=== PATIENT | female | born 1995 ===

== ENCOUNTER 2017-07-26 07:16 | Inpatient (IN) ==
[2017-07-26 08:04] LABS: Apearance,Urine Slightly Hazy (Clear); Bacteria,Urine Moderate /HPF (Few); Bilirubin,Urine Negative (Negative); Blood, Urine Negative (Negative); Glucose,Urine (UA) Negative (Negative); Ketones,Urine 80 mg/dL (Negative); Mucus,Urine Occasional /LPF (Occasional); Nitrite,Urine Negative (Negative); Protein,Urine Negative; RBC,Urine 2 /HPF (0-4); Squamous Epithelial Cell,Urine Occasional /HPF (0-10); Urine Color Yellow (Yellow); Urine Specific Gravity 1.018 (1.001-1.035); Urine Urobilinogen < 2.0 EU/DL (0.2-1.0); WBC,Urine 14 /HPF (0-6)
[2017-07-26] MEDS ORDERED: ONDANSETRON 4 MG/2 ML VIAL IV PRN (08:42)
[2017-07-26] MEDS: LACTATED RINGERS 1,000 ML IV SCH ×2 (08:48→14:20)
[2017-07-26 08:57] LABS: Basophils % 0.3 % (0.0-0.8); Eosinophils # 0.1 10*3/uL (0.0-0.87); Hematocrit 34.8 VOL% (35.7-47.0); Hemoglobin 11.8 GM/DL (12.0-16.0); Immature Granulocytes % 0.4 %; Immature Granulocytes Absolute 0.03 #; Lymphocytes # 1.9 10*3/uL (1.4-4.0); Lymphocytes % 23.6 % (21.3-54.2); Mean Corpuscular HGB Conc 33.9 GM/DL (32-36); Mean Corpuscular Hemoglobin 28 PG (27-34); Mean Corpuscular Volume 83.7 FL (87-102); Mean Platelet Volume 9.2 FL (9.6-12.0); Monocytes # 0.6 10*3/uL (0.11-0.8); Monocytes % 7.3 % (1.7-12.7); Neutrophils # 5.3 10*3/uL (1.4-7.4); Neutrophils % 67.4 % (38.7-73.9); Platelet Count 250 T/CUMM (130-400); Red Blood Count 4.16 MC/CUMM (3.8-5.5); White Blood Count 7.9 T/CUMM (4-12)
[2017-07-26] MEDS ORDERED: OXYTOCIN/LR 20 UNIT/1,000 ML BAG IV SCH (09:00)
[2017-07-26 09:34] LABS: Albumin 2.5 G/DL (3.4-5.0); Bilirubin,Total 0.5 MG/DL (0.2-1.0); Calcium 8.4 MG/DL (8.5-10.1); Osmolality,Calculated 276.7 MOS/KG (273-304); Total Protein 6.9 G/DL (6.4-8.3)
--- NOTE | 2017-07-26 09:46 | OB/GYN History & Physical ---
History of Present Illness Chief complaint: Painful uterine contactions. History of present illness: Ms. Grijalva is a 22 year old female who is a 2 para 1 living 1. CAN 2016 estimated gestational age of 38 weeks and 2 days. The patient presents to the labor department in active labor. The risk and benefits has been thoroughly discussed with this patient significant other, plan of care has been discussed with Dr. Ayers and all parties are in agreement plan. Patient received care through the [facility] in the [facility]. She received routine care. Her course was complicated by new diagnosis of gestational diabetes. The patient's blood sugar was managed with diet. She has had 1 previous vaginal delivery of a liveborn at 36 weeks. That infant weighed 7 pounds and 12 ounces and she reported gestational diabetes with that as well. labs: She is O+, RPR is nonreactive , rubella is immune, Pap smear is within normal limits, hepatitis B negative, HIV negative, GBS culture unknown. Review of systems is negative with exception of above. Home Medications Medication Instructions Recorded Confirmed Type Folic Acid Tab 1 mg PO DAILY 07/14/17 07/26/17 History Multivitamin () [ 1 tablet PO DAILY 07/14/17 07/26/17 History Vitamin] Allergies Allergy/AdvReac Type Severity Reaction Status Date / Time No Known Allergies Allergy Verified 07/14/17 16:13 12 point system: reviewed and no additional remarkable complaints except as stated Medical,Surgical,& Family Hx - Medical History Medical History: noncontributory Endocrine: History of: Diabetes Mellitus (NIDDM) (gestional diet controll) - Surgical History Surgical History: noncontributory - Family History Family History: Reports;: Family Diabetes (mother mgm), Family Hypertension (mgm ) Denies;: Family Anesthesia Reaction, Family Cancer, Family Heart Disease, Family Hematology, Family Psychiatric Problems, Family Stroke, Additional Family History - Social History Smoking Status: Never smoker Frequency of Alcohol Use: None Type of Drug Use: None Marital Status: Single Lives With:: Significant Other Functional capacity: independent ambulation Exam [employer] - Constitutional Vitals: Vital Signs Temp Resp BP Pulse Ox 07/26/17 08:00 97.7 F 20 114/72 100 General appearance: mild distress - Antepartum / Post Antepartum Exam Cervix - Dilatation: 5 cm Effacement: 70% Station: -2 Rupture: intact Presentation: vtx Heart Rate: 140s Breast: bilateral: normal Abdomen obstetrics: Present: bowel sounds normal Vagina: Present: normal moisture, discharge (Bloody show) Uterus exam: Present: enlarged Anus/Rectum: Present: normal perianal skin - Respiratory Respiratory exam: Present: clear to auscultation bilaterally - Cardiovascular Cardiovascular exam: Present: regular rate and rhythm - GI/Abdominal GI/Abdominal exam: Present: normal bowel sounds, soft - Extremities Exam Extremities exam: Present: normal inspection - Neurological Exam Neurological exam: Present: alert, oriented X3 - Psychiatric Psychiatric exam: Present: normal affect, normal mood - Skin Skin exam: Present: normal color, warm Assessment and Plan (1) Active labor Status: Acute Assessment and plan: Admit IV fluids IV Pitocin per protocol Artificial rupture membranes Internal monitors indicated Epidural anesthesia if desired IV antibiotics prophylactically for unknown GBS Anticipate Current Visit: Yes Results - Labs CBC & BMP: 07/26/17 08:51 07/26/17 08:51
[2017-07-26] MEDS ORDERED: AMPICILLIN INJ 2,000 MG in SODIUM CHLORIDE 0.9% 100 ML IV ONE (09:51)
[2017-07-26] MEDS ORDERED: MEPERIDINE 50 MG/1 ML VIAL IV PRN (12:46)
[2017-07-26] MEDS ORDERED: LACTATED RINGERS 1,000 ML IV ONE (13:23)
[2017-07-26] MEDS ORDERED: FAMOTIDINE 20 MG/2 ML VIAL IV ONE (13:23)
[2017-07-26] MEDS ORDERED: CITRIC ACID/SODIUM CITRATE 30 ML UDCUP PO ONE (13:23)
[2017-07-26] MEDS ORDERED: diphenhydrAMINE 50 MG/1 ML VIAL IV PRN ×2 (13:24)
[2017-07-26] MEDS ORDERED: PROMETHAZINE 25 MG/1 ML VIAL IM ONE (13:24)
[2017-07-26] MEDS ORDERED: fentaNYL 2 MCG/ROPIV 0.2% EPID 150 ML EPIDURAL SCH (13:24)
[2017-07-26] MEDS ORDERED: ePHEDrine 50 MG/ML AMP IV PRN (13:24)
[2017-07-26] MEDS ORDERED: hydrOXYzine HCL 25 MG/1 ML VIAL IM PRN (13:24)
[2017-07-26] MEDS ORDERED: AMPICILLIN INJ 1,000 MG in SODIUM CHLORIDE 0.9% 100 ML IV SCH (14:00)
[2017-07-26 16:22] LABS: Cord Arterial Blood HCO3 16.4 MMOL/L
[2017-07-26 16:24] LABS: Cord Venous Blood HCO3 19.9 MMOL/L; Cord Venous Blood PCO2 41.1 MMHG; Cord Venous Blood PO2 40.8
[2017-07-26] MEDS ORDERED: ACETAMINOPHEN/CODEINE 300-30 MG TABLET PO PRN (16:27)
--- NOTE | 2017-07-26 16:36 | Event Note ---
HPI: Ms. Grijalva presented to the labor department in active labor. The risk and benefits were thoroughly discussed with this patient and significant other, plan of care was discussed with Dr. Ayers and all parties were in agreement plan. Stage I: The patient was admitted she received IV fluids and IV Pitocin per protocol. Artificial rupture membranes was performed with derrick colored fluid noted. The patient progressed in labor until she was approximately 7 cm and she decided that she wanted an epidural. Epidural anesthesia was obtained. The patient continued to progress with no complications noted. She maintain a category 1 tracing. Stage II: The patient was complete and the vertex was presented at 0 station. The patient was instructed to push. She pushed for approximately 30 minutes after which time the 's head was delivered. The was noted to have a large head, the mouth and nose were suctioned on the perineum. The delivery staff was signaled to prepare for a possible shoulder dystocia. An effort was made to deliver the remainder of the and tight shoulders were noted. Therefore, the patient was placed in Essence position to facilitate the delivery. She pushed approximately 1 more minute after the head was delivered; the remainder of the was delivered at 1554 without significant effort. A viable female was noted with terminal meconium at the time of delivery. Apgars were 8 at 1 minute and 9 at 5 minutes. weight was 11 pounds and 3 ounces. A cord pH was obtained and sent to the lab. Because of the size of the she was taken directly to the warmer to be evaluated by the nursery nurse. Stage III: A spontaneous delivery of a Daley placenta with a three-vessel cord noted. The placenta was further examined appeared to be grossly intact. The vagina cervix inspected with no tears or lacerations noted. Estimated blood loss is approximately 150 cc. At the time of dictation mother and baby are both in stable condition.
[2017-07-26] MEDS ORDERED: MEASLES/MUMPS/RUBELLA VACCINE 0.5 ML VIAL SUBCUT ONE (17:47)
[2017-07-26] MEDS ORDERED: oxyCODONE/ACETAMINOPHEN 5-325 MG TABLET PO PRN ×2 (17:47)
[2017-07-26] MEDS ORDERED: RHO(D) IMMUNE GLOBULIN 300 MCG SYRINGE IM ONE (17:47)
[2017-07-26] MEDS ORDERED: HYDROCORTISONE 2.5% RECTAL CREAM 30 GM TUBE TOP PRN (17:47)
[2017-07-26] MEDS ORDERED: WITCH HAZEL PADS 100/JAR TOP PRN (17:47)
[2017-07-26] MEDS ORDERED: DIPH/TET/ACEL PERT BOOSTER VACCINE 0.5 ML VIAL IM ONE (17:47)
[2017-07-26] MEDS ORDERED: BISACODYL 10 MG SUPP RECTAL PRN (17:47)
[2017-07-26] MEDS ORDERED: ACETAMINOPHEN 325 MG TABLET PO PRN (17:47)
[2017-07-26] MEDS ORDERED: LANOLIN 50% CREAM 0.3 OZ TUBE TOP PRN (17:47)
[2017-07-26] MEDS ORDERED: BENZOCAINE 20%/MENTHOL 0.5% SPRAY 56 GM CAN TOP PRN (17:47)
--- NOTE | 2017-07-26 19:26 | Anesthesia Post-Op ---
Anesthesia Post OP - Post Ansesthetic Evaluation Patient seen in post op: Yes Resp: within normal limits CV: within normal limits Mental: within normal limits Temp: within normal limits [id number]: within normal limits Nausea and Vomiting: within normal limits Pain: within normal limits
[2017-07-26] MEDS: DOCUSATE SODIUM 100 MG CAPSULE PO SCH (21:12)
[2017-07-26] MEDS: IBUPROFEN 800 MG TABLET PO PRN (22:00)
[2017-07-27 07:22] LABS: Basophils % 0.3 % (0.0-0.8); Eosinophils # 0.2 10*3/uL (0.0-0.87); Eosinophils % 1.4 % (0.00-10.9); Hematocrit 31.3 VOL% (35.7-47.0); Hemoglobin 10.7 GM/DL (12.0-16.0); Immature Granulocytes % 0.5 %; Immature Granulocytes Absolute 0.05 #; Lymphocytes # 2.5 10*3/uL (1.4-4.0); Lymphocytes % 22.9 % (21.3-54.2); Mean Corpuscular HGB Conc 34.2 GM/DL (32-36); Mean Corpuscular Hemoglobin 29 PG (27-34); Mean Corpuscular Volume 84.1 FL (87-102); Mean Platelet Volume 9.6 FL (9.6-12.0); Monocytes # 1.1 10*3/uL (0.11-0.8); Monocytes % 10.2 % (1.7-12.7); Neutrophils % 64.7 % (38.7-73.9); Platelet Count 221 T/CUMM (130-400); Red Blood Count 3.72 MC/CUMM (3.8-5.5); Red Cell Distribution Width 15.1 % (9.3-17.3); White Blood Count 10.8 T/CUMM (4-12)
[2017-07-27] MEDS: IBUPROFEN 800 MG TABLET PO PRN ×2 (08:41→16:18)
[2017-07-27] MEDS: DOCUSATE SODIUM 100 MG CAPSULE PO SCH ×2 (08:41→20:56)
--- NOTE | 2017-07-27 10:02 | OB/GYN Progress Note ---
Assessment and Plan (1) Active labor Status: Acute Assessment and plan: Admit IV fluids IV Pitocin per protocol Artificial rupture membranes Internal monitors indicated Epidural anesthesia if desired IV antibiotics prophylactically for unknown GBS Anticipate Current Visit: Yes (2) Vaginal delivery Status: Acute Assessment and plan: Initiate routine orders. Current Visit: Yes [facility] - PN: Subj Interval history: Stable with no complaints at this time. Exam [facility] - Constitutional Vitals: Vital Signs Temp Pulse Resp BP Pulse Ox 07/27/17 07:42 97.1 F L 64 18 97/64 97 07/27/17 07:00 18 07/27/17 05:50 18 07/27/17 05:00 18 07/27/17 03:55 97.5 F L 60 18 101/58 96 07/27/17 03:00 18 07/27/17 01:50 16 07/27/17 01:00 18 07/27/17 00:00 97.1 F L 62 16 104/66 96 07/26/17 20:40 97.4 F L 60 18 126/69 97 07/26/17 19:40 97.4 F L 65 20 116/63 96 07/26/17 18:40 57 L 19 117/73 100 07/26/17 18:10 57 L 20 119/87 100 07/26/17 17:40 97.2 F L 63 20 108/76 100 07/26/17 16:00 98 F 74 114/69 99 General appearance: no acute distress - Antepartum / Post Post Exam Breast: bilateral: normal Abdomen obstetrics: Present: bowel sounds normal Vagina: Present: normal moisture, discharge (Light lochia rubra) Uterus exam: Present: enlarged (Fundus firm and midline) Anus/Rectum: Present: normal perianal skin - Head Head exam: Present: normal inspection - ENT ENT exam: Present: normal exam - Neck Neck exam: Present: normal inspection - Respiratory Respiratory exam: Present: clear to auscultation bilaterally - Cardiovascular Cardiovascular exam: Present: regular rate and rhythm - GI/Abdominal GI/Abdominal exam: Present: normal bowel sounds, soft - Extremities Exam Extremities exam: Present: normal inspection - Neurological Exam Neurological exam: Present: alert, oriented X3 - Psychiatric Psychiatric exam: Present: normal affect, normal mood - Skin Skin exam: Present: normal color, warm Results - Labs CBC & BMP: 07/27/17 07:01 07/26/17 08:51
[2017-07-28 07:09] VITALS: BP 103/61
[2017-07-28] MEDS: DOCUSATE SODIUM 100 MG CAPSULE PO SCH (09:29)
--- NOTE | 2017-07-28 10:34 | Discharge Summary ---
Hospital Course - Hospital Course Hospital Course: Ms. Grijalva presented to the labor department in active labor. She subsequently delivered a viable female infant that weighed 11 pounds and 3 ounces. Due to the size of the it was taken to the NICU for stabilizations of blood sugars. The remains in the NICU in stable condition. The patient desires to be discharged to home. She has done well post . Her vital signs and lab values are stable. Her bleeding is minimal with no odor. Her perineum is intact with no edema. Contraception options has been discussed with this patient and she is undecided of a method at this time. She will be discharged home prescriptions for pain and a follow-up appointment in our office. Diagnosis - Discharge Diagnosis (1) Active labor Status: Acute (2) Vaginal delivery Status: Acute Specialty Discharge - Follow Up or Referrals Follow up with: Lacy Ayers MD [Physician] - (Return to clinic in 6 weeks.) Discharge Plan - Discharge Data Disposition: Disch To Home/Self Care Condition at Discharge: Stable Discharge Diet: advance to your usual diet, regular diet Activity: resume usual activities as tolerated Hygiene: may shower Weight Bearing at Discharge: weight bear as tolerated Driving: no restrictions Contact your physician if you experience:: fever over 101, pain uncontrolled by pain medications - Discharge Medications New Acetamin/Codeine 300-30 Tab [Tylenol/Codeine #3] 2 tablet PO Q4H PRN #30 tablet PRN Reason: Pain Mild (1-3) Ibuprofen Tab [Motrin Tab] 800 mg PO Q6H PRN #30 tablet PRN Reason: Pain Moderate (4-7) No Action Folic Acid Tab 1 mg PO DAILY Multivitamin () [ Vitamin] 1 tablet PO DAILY - Follow Up or Referral Follow Up: Lacy Ayers MD [Physician] - - Forms/Instructions Instructions: Perineal Care (DC), Vaginal Delivery (DC), Bleeding (DC) Exam - Constitutional Vitals: Period Temp Pulse Resp BP Sys/Abdi Pulse Ox Last 24 Hr 97 F-98.7 F 18-102 18-20 103-147/61-90 97-99 General appearance: normal weight, no acute distress - Head Head exam: Present: normal inspection - Respiratory Respiratory exam: Present: clear to auscultation bilaterally - Cardiovascular Cardiovascular exam: Present: regular rate and rhythm - GI/Abdominal GI/Abdominal exam: Present: normal bowel sounds, soft - Extremities Exam Extremities exam: Present: normal inspection - Neurological Exam Neurological exam: Present: alert, oriented X3 - Psychiatric Psychiatric exam: Present: normal affect, normal mood - Skin Skin exam: Present: normal color, warm DS: Provider Date of admission: 07/26/17 08:43 Primary care physician: Jef Mayberry MD Attending physician on admission: Lacy Ayers MD Consults: 07/26/17 08:43 Consult to Anesthesiology [CONS] Routine Consulting Provider: Reason for Anesthesiology: Epidural Consult Comment: Epidural for pain managment 07/26/17 17:47 Consult to Salesperson Burial Needs [CONS] Routine Consult Salesperson Burial Needs: Breast Feeding Discharging clinician: Darcy Fleming CNM Expected date of discharge: 07/28/17
== END 2017-07-28 16:20 | disposition home or self-care (01) | DRG 560 ==
LOC: N.LDOUT 07:16 → N.LD 07:17 → N.OB 17:42
PROVIDERS: ADMIT Obstetrics & Gynecology; ATTEND Obstetrics & Gynecology

== ENCOUNTER 2017-10-10 17:47 | Inpatient (IN) ==
[2017-10-10 19:21] LABS: Basophils % 0.4 % (0.0-0.8); Eosinophils # 0.1 10*3/uL (0.0-0.87); Eosinophils % 1.6 % (0.00-10.9); Hematocrit 35.1 VOL% (35.7-47.0); Hemoglobin 12.5 GM/DL (12.0-16.0); Immature Granulocytes % 0.7 %; Immature Granulocytes Absolute 0.04 #; Lymphocytes # 0.7 10*3/uL (1.4-4.0); Lymphocytes % 12.5 % (21.3-54.2); Mean Corpuscular HGB Conc 35.6 GM/DL (32-36); Mean Corpuscular Hemoglobin 30 PG (27-34); Monocytes # 0.5 10*3/uL (0.11-0.8); Monocytes % 9.1 % (1.7-12.7); Neutrophils # 4.2 10*3/uL (1.4-7.4); Neutrophils % 75.7 % (38.7-73.9); Platelet Count 281 T/CUMM (130-400); Red Blood Count 4.18 MC/CUMM (3.8-5.5); Red Cell Distribution Width 13.6 % (9.3-17.3); White Blood Count 5.5 T/CUMM (4-12)
[2017-10-10 19:45] LABS: Albumin 3.4 G/DL (3.4-5.0); Bilirubin,Total 6.4 MG/DL (0.2-1.0); Osmolality,Calculated 274.4 MOS/KG (273-304); Potassium 3.4 MMOL/L (3.5-5.1); Total Protein 6.6 G/DL (6.4-8.3)
[2017-10-10] MEDS ORDERED: ACETAMINOPHEN 325 MG TABLET PO PRN (19:45)
[2017-10-10] MEDS ORDERED: ALUMINUM/MAGNES/SIMETH MAX STR 30 ML UDCUP PO PRN (19:45)
[2017-10-10] MEDS: DOCUSATE SODIUM 100 MG CAPSULE PO SCH (22:16)
[2017-10-10] MEDS: DEXTROSE 5% NACL 0.45% 1,000 ML IV SCH (22:19)
[2017-10-10] MEDS: cefOXitin 2,000 MG in SYRINGE 1 EACH IV SCH (22:47)
[2017-10-11] MEDS: cefOXitin 2,000 MG in SYRINGE 1 EACH IV SCH ×4 (05:20→21:39)
[2017-10-11 05:24] LABS: Basophils % 0.6 % (0.0-0.8); Eosinophils # 0.2 10*3/uL (0.0-0.87); Eosinophils % 3.5 % (0.00-10.9); Hematocrit 33.9 VOL% (35.7-47.0); Hemoglobin 11.8 GM/DL (12.0-16.0); Immature Granulocytes % 0.6 %; Immature Granulocytes Absolute 0.03 #; Lymphocytes # 1.4 10*3/uL (1.4-4.0); Lymphocytes % 28.4 % (21.3-54.2); Mean Corpuscular HGB Conc 34.8 GM/DL (32-36); Mean Corpuscular Hemoglobin 30 PG (27-34); Mean Corpuscular Volume 84.8 FL (87-102); Mean Platelet Volume 9.3 FL (9.6-12.0); Monocytes # 0.5 10*3/uL (0.11-0.8); Monocytes % 11.1 % (1.7-12.7); Neutrophils # 2.7 10*3/uL (1.4-7.4); Neutrophils % 55.8 % (38.7-73.9); Platelet Count 277 T/CUMM (130-400); Red Cell Distribution Width 13.7 % (9.3-17.3); White Blood Count 4.9 T/CUMM (4-12)
[2017-10-11] MEDS: DEXTROSE 5% NACL 0.45% 1,000 ML IV SCH ×2 (05:47→13:48)
[2017-10-11 05:59] LABS: Bilirubin,Total 4.4 MG/DL (0.2-1.0); Calcium 7.9 MG/DL (8.5-10.1); Magnesium 1.9 MG/DL (1.8-2.4); Osmolality,Calculated 275.5 MOS/KG (273-304); Potassium 3.2 MMOL/L (3.5-5.1); Total Protein 6.1 G/DL (6.4-8.3)
[2017-10-11] MEDS: PANTOPRAZOLE 40 MG TABLET PO SCH (08:32)
[2017-10-11] MEDS: DOCUSATE SODIUM 100 MG CAPSULE PO SCH ×2 (08:32→21:39)
[2017-10-11] MEDS: DEXT 5% NACL 0.45% KCL 40 MEQ 40 MEQ/1,000 ML BAG IV SCH (13:31)
[2017-10-12] MEDS: DEXT 5% NACL 0.45% KCL 40 MEQ 40 MEQ/1,000 ML BAG IV SCH ×2 (01:28→10:22)
[2017-10-12] MEDS: cefOXitin 2,000 MG in SYRINGE 1 EACH IV SCH ×3 (07:11→18:38)
[2017-10-12 07:42] LABS: Basophils % 0.7 % (0.0-0.8); Eosinophils # 0.4 10*3/uL (0.0-0.87); Eosinophils % 8.8 % (0.00-10.9); Hematocrit 35.9 VOL% (35.7-47.0); Hemoglobin 12.4 GM/DL (12.0-16.0); Immature Granulocytes % 0.4 %; Immature Granulocytes Absolute 0.02 #; Lymphocytes # 1.7 10*3/uL (1.4-4.0); Lymphocytes % 36.3 % (21.3-54.2); Mean Corpuscular HGB Conc 34.5 GM/DL (32-36); Mean Corpuscular Hemoglobin 30 PG (27-34); Mean Corpuscular Volume 85.5 FL (87-102); Monocytes # 0.5 10*3/uL (0.11-0.8); Monocytes % 10.5 % (1.7-12.7); Neutrophils % 43.3 % (38.7-73.9); Platelet Count 285 T/CUMM (130-400); Red Cell Distribution Width 13.9 % (9.3-17.3); White Blood Count 4.6 T/CUMM (4-12)
[2017-10-12 07:49] LABS: INR 1.1; PT Patient Result 11.1 SECS
[2017-10-12 08:13] LABS: Calcium 8.6 MG/DL (8.5-10.1); Osmolality,Calculated 277.3 MOS/KG (273-304); Potassium 3.9 MMOL/L (3.5-5.1); Total Protein 6.3 G/DL (6.4-8.3)
[2017-10-12] MEDS: PANTOPRAZOLE 40 MG TABLET PO SCH (10:21)
[2017-10-12] MEDS: DOCUSATE SODIUM 100 MG CAPSULE PO SCH ×2 (10:21→20:08)
[2017-10-12] MEDS ORDERED: KETAMINE 500 MG/10 ML VIAL ONE (10:24)
[2017-10-12] MEDS ORDERED: fentaNYL 100 MCG/2 ML VIAL ONE (10:24)
[2017-10-12] MEDS ORDERED: MIDAZOLAM 2 MG/2 ML VIAL ONE (10:25)
[2017-10-12] MEDS ORDERED: PROPOFOL 200 MG/20 ML VIAL IV ONE (12:12)
[2017-10-12] MEDS: ONDANSETRON 4 MG/2 ML VIAL IV PRN (14:20)
[2017-10-12] MEDS ORDERED: ONDANSETRON 4 MG/2 ML VIAL ONE (14:23)
[2017-10-12] MEDS: HYDROmorphone 2 MG/1 ML VIAL IV PRN ×2 (14:36→20:08)
[2017-10-12] MEDS: DEXTROSE 5% NACL 0.45% 1,000 ML IV SCH ×2 (14:41→22:47)
[2017-10-13] MEDS: cefOXitin 2,000 MG in SYRINGE 1 EACH IV SCH ×4 (01:14→18:33)
[2017-10-13 05:42] LABS: Basophils # 0.1 10*3/uL (0.0-0.2); Basophils % 0.9 % (0.0-0.8); Eosinophils # 0.4 10*3/uL (0.0-0.87); Eosinophils % 6.1 % (0.00-10.9); Hematocrit 34.9 VOL% (35.7-47.0); Hemoglobin 12.3 GM/DL (12.0-16.0); Immature Granulocytes % 0.3 %; Immature Granulocytes Absolute 0.02 #; Lymphocytes # 2.1 10*3/uL (1.4-4.0); Lymphocytes % 36.8 % (21.3-54.2); Mean Corpuscular HGB Conc 35.2 GM/DL (32-36); Mean Corpuscular Hemoglobin 30 PG (27-34); Mean Corpuscular Volume 85.5 FL (87-102); Mean Platelet Volume 9.2 FL (9.6-12.0); Monocytes # 0.7 10*3/uL (0.11-0.8); Neutrophils # 2.5 10*3/uL (1.4-7.4); Neutrophils % 43.9 % (38.7-73.9); Platelet Count 296 T/CUMM (130-400); Red Blood Count 4.08 MC/CUMM (3.8-5.5); Red Cell Distribution Width 13.7 % (9.3-17.3); White Blood Count 5.8 T/CUMM (4-12)
[2017-10-13] MEDS ORDERED: ceFAZolin 1,000 MG in SYRINGE 1 EACH IV ONE (06:00)
[2017-10-13 06:21] LABS: Albumin 2.9 G/DL (3.4-5.0); Bilirubin,Total 1.7 MG/DL (0.2-1.0); Calcium 8.1 MG/DL (8.5-10.1); Osmolality,Calculated 276.3 MOS/KG (273-304); Potassium 3.5 MMOL/L (3.5-5.1)
[2017-10-13] MEDS: DEXTROSE 5% NACL 0.45% 1,000 ML IV SCH ×2 (06:57→18:07)
[2017-10-13] MEDS ORDERED: FAMOTIDINE 20 MG TABLET PO ONE (08:12)
[2017-10-13] MEDS ORDERED: SCOPOLAMINE 1.5 MG PATCH TRANSDERM ONE (08:26)
[2017-10-13] MEDS ORDERED: LACTATED RINGERS 1,000 ML IV SCH (08:30)
[2017-10-13] MEDS: PANTOPRAZOLE 40 MG TABLET PO SCH (09:23)
[2017-10-13] MEDS: DOCUSATE SODIUM 100 MG CAPSULE PO SCH ×2 (09:23→21:38)
[2017-10-13] MEDS ORDERED: GLUCAGON 1 MG VIAL ONE (12:15)
[2017-10-13] MEDS ORDERED: TISSUE ADHESIVE 1 EACH APPLICATOR TOP ONE (12:41)
[2017-10-13] MEDS ORDERED: fentaNYL 100 MCG/2 ML VIAL ONE (13:12)
[2017-10-13] MEDS ORDERED: PROPOFOL 200 MG/20 ML VIAL IV ONE (13:12)
[2017-10-13] MEDS ORDERED: SEVOFLURANE 1 UNIT/15 MINUTE INH ONE (13:12)
[2017-10-13] MEDS ORDERED: GLYCOPYRROLATE 0.4 MG/2 ML VIAL ONE (13:13)
[2017-10-13] MEDS ORDERED: ePHEDrine 50 MG/ML AMP ONE (13:13)
[2017-10-13] MEDS: HYDROmorphone 2 MG/1 ML VIAL IV PRN ×5 (13:15→17:47)
[2017-10-13] MEDS: ONDANSETRON 4 MG/2 ML VIAL IV PRN ×2 (13:16→17:48)
[2017-10-13] MEDS ORDERED: ONDANSETRON 4 MG/2 ML VIAL IV PRN (13:30)
[2017-10-13] MEDS: KETOROLAC 15 MG/1 ML VIAL IV SCH ×2 (13:47→20:11)
[2017-10-13] MEDS: ceFAZolin 2,000 MG in PREMIX 1 EACH IV SCH (17:56)
[2017-10-13 18:10] LABS: Hematocrit 35.8 VOL% (35.7-47.0); Hemoglobin 12.4 GM/DL (12.0-16.0)
[2017-10-14] MEDS: KETOROLAC 15 MG/1 ML VIAL IV SCH ×3 (01:19→13:34)
[2017-10-14] MEDS: cefOXitin 2,000 MG in SYRINGE 1 EACH IV SCH ×3 (01:21→13:34)
[2017-10-14] MEDS: DEXTROSE 5% NACL 0.45% 1,000 ML IV SCH ×3 (02:35→13:33)
[2017-10-14] MEDS: ceFAZolin 2,000 MG in PREMIX 1 EACH IV SCH (02:35)
[2017-10-14 04:51] LABS: Basophils % 0.3 % (0.0-0.8); Eosinophils # 0.1 10*3/uL (0.0-0.87); Eosinophils % 1.3 % (0.00-10.9); Hematocrit 34.1 VOL% (35.7-47.0); Hemoglobin 11.9 GM/DL (12.0-16.0); Immature Granulocytes % 0.4 %; Immature Granulocytes Absolute 0.03 #; Lymphocytes # 1.8 10*3/uL (1.4-4.0); Lymphocytes % 23.9 % (21.3-54.2); Mean Corpuscular HGB Conc 34.9 GM/DL (32-36); Mean Corpuscular Hemoglobin 30 PG (27-34); Mean Corpuscular Volume 85.9 FL (87-102); Mean Platelet Volume 9.3 FL (9.6-12.0); Monocytes # 0.8 10*3/uL (0.11-0.8); Monocytes % 9.8 % (1.7-12.7); Neutrophils % 64.3 % (38.7-73.9); Platelet Count 285 T/CUMM (130-400); Red Blood Count 3.97 MC/CUMM (3.8-5.5); Red Cell Distribution Width 13.8 % (9.3-17.3); White Blood Count 7.7 T/CUMM (4-12)
[2017-10-14 05:27] LABS: Albumin 2.9 G/DL (3.4-5.0); Bilirubin,Total 1.3 MG/DL (0.2-1.0); Osmolality,Calculated 279.1 MOS/KG (273-304); Potassium 3.1 MMOL/L (3.5-5.1); Total Protein 6.2 G/DL (6.4-8.3)
[2017-10-14] MEDS ORDERED: ENOXAPARIN 40 MG/0.4 ML SYRINGE SUBCUT SCH (09:00)
[2017-10-14] MEDS: PANTOPRAZOLE 40 MG TABLET PO SCH (09:10)
[2017-10-14] MEDS: DOCUSATE SODIUM 100 MG CAPSULE PO SCH (09:10)
[2017-10-14 11:53] VITALS: BP 104/55
== END 2017-10-14 14:17 | disposition home or self-care (01) | DRG 263 ==
LOC: EDUNIT# → EDBD → N.ED 17:47 → N.EDINP 19:45 → N.5E 20:52
PROVIDERS: ADMIT Specialist; ATTEND Specialist
PROC: ERCPWSP (ICD-10-PCS; 2017-10-12 12:05)
PROC: LAPCHOL (2017-10-13 11:10)

== ENCOUNTER 2020-12-24 06:50 | Inpatient (IN) ==
[2020-12-24] MEDS ORDERED: LACTATED RINGERS 1,000 ML IV PRN (07:21)
[2020-12-24] MEDS ORDERED: BUTORPHANOL 2 MG/ML VIAL IV PRN (07:21)
[2020-12-24] MEDS ORDERED: MEPERIDINE 50 MG/1 ML VIAL IV PRN (07:21)
[2020-12-24] MEDS ORDERED: ONDANSETRON 4 MG/2 ML VIAL IV PRN ×2 (07:21→18:45)
[2020-12-24] MEDS ORDERED: OXYTOCIN/LR 20 UNIT/1,000 ML BAG IV SCH (07:30)
[2020-12-24] MEDS ORDERED: LACTATED RINGERS 1,000 ML IV SCH (07:30)
[2020-12-24 07:39] LABS: Basophils % 0.5 % (0.0-0.8); Eosinophils # 0.2 10*3/uL (0.0-0.87); Eosinophils % 1.7 % (0.00-10.9); Hematocrit 30.3 VOL% (35.7-47.0); Hemoglobin 9.5 GM/DL (12.0-16.0); Immature Granulocytes % 0.3 %; Immature Granulocytes Absolute 0.03 #; Lymphocytes # 3.2 10*3/uL (1.4-4.0); Lymphocytes % 36.1 % (21.3-54.2); Mean Corpuscular HGB Conc 31.4 GM/DL (32-36); Mean Corpuscular Volume 75.6 FL (87-102); Mean Platelet Volume 10.4 FL (9.6-12.0); Monocytes % 7.4 % (1.7-12.7); Platelet Count 319 T/CUMM (130-400); Red Blood Count 4.01 MC/CUMM (3.8-5.5); Red Cell Distribution Width 13.9 % (9.3-17.3); White Blood Count 8.8 T/CUMM (4-12)
[2020-12-24 08:59] LABS: Alanine Aminotransferase 12 U/L (13-56); Albumin 1.9 G/DL (3.4-5.0); Alkaline Phosphatase 140 U/L (45-117); Aspartate Amino Transferase 17 U/L (0-37); Bilirubin,Direct < 0.100 MG/DL (0.0-0.20); Bilirubin,Total < 0.39 MG/DL (0.2-1.0); Blood Urea Nitrogen 12 MG/DL (7-18); Calcium 7.9 MG/DL (8.5-10.1); Carbon Dioxide 21 MMOL/L (21-32); Estimated Glom Filtration Rate 98 ML/MIN; Glucose 141 MG/DL (74-106); Osmolality,Calculated 278.5 MOS/KG (273-304); Sodium 139 MMOL/L (136-145); Total Protein 6.3 G/DL (6.4-8.3); Uric Acid 6.5 MG/DL (2.6-6.0)
[2020-12-24 09:23] LABS: Bacteria,Urine Occasional /HPF (Few); Bilirubin,Urine Negative (Negative); Blood, Urine Negative (Negative); Glucose,Urine (UA) Negative (Negative); Hyaline Casts,Urine 18 /LPF (0-3); Ketones,Urine Negative (Negative); Mucus,Urine Few /LPF (Occasional); Nitrite,Urine Negative (Negative); Protein,Urine >=500 MG/DL; RBC,Urine 3 /HPF (0-4); Squamous Epithelial Cell,Urine Occasional /HPF (0-10); Urine Appearance CLEAR (Clear); Urine Color Amber (Yellow); Urine Specific Gravity 1.028 (1.001-1.035); Urine Urobilinogen < 2.0 EU/DL (0.2-1.0); WBC,Urine 5 /HPF (0-6)
[2020-12-24] MEDS ORDERED: AMPICILLIN INJ 2,000 MG in SODIUM CHLORIDE 0.9% 100 ML IV ONE (09:35)
[2020-12-24] MEDS ORDERED: AMPICILLIN 2,000 MG VIAL ONE (09:36)
[2020-12-24] MEDS ORDERED: SODIUM CHLORIDE 0.9% 0 ML IV ONE (09:37)
[2020-12-24 09:58] LABS: INR 0.9; PT Patient Result 8.9 SECS (9.8-11.9); Partial Thromboplastin Time 24.4 SECS (23.9-33.8)
[2020-12-24] MEDS ORDERED: ePHEDrine 50 MG/ML VIAL IV PRN (11:56)
[2020-12-24] MEDS ORDERED: FAMOTIDINE 20 MG/2 ML VIAL IV ONE ×2 (11:56→12:01)
[2020-12-24] MEDS ORDERED: CITRIC ACID/SODIUM CITRATE 30 ML UDCUP PO ONE (11:56)
[2020-12-24] MEDS ORDERED: NALOXONE 0.4 MG/ML VIAL IV PRN (11:57)
[2020-12-24] MEDS ORDERED: hydrOXYzine HCL 25 MG/1 ML VIAL IM PRN (11:57)
[2020-12-24] MEDS ORDERED: LACTATED RINGERS 250 ML IV PRN (11:57)
[2020-12-24] MEDS ORDERED: PROMETHAZINE 25 MG/1 ML VIAL IM ONE (11:57)
[2020-12-24] MEDS ORDERED: diphenhydrAMINE 50 MG/1 ML VIAL IV PRN ×2 (11:57)
[2020-12-24] MEDS ORDERED: fentaNYL 2 MCG/ROPIV 0.2% EPID 100 ML EPIDURAL SCH (12:00)
[2020-12-24] MEDS ORDERED: NIFEdipine 10 MG CAPSULE PO ONE ×2 (12:09→12:32)
[2020-12-24] MEDS ORDERED: AMPICILLIN INJ 1,000 MG in SODIUM CHLORIDE 0.9% 100 ML IV SCH (14:00)
[2020-12-24] MEDS ORDERED: CARBOPROST TROMETHAMINE 250 MCG/ML AMP IM ONE (17:52)
[2020-12-24] MEDS ORDERED: TRANEXAMIC ACID 1,000 MG/10 ML VIAL ONE (17:52)
[2020-12-24] MEDS ORDERED: METHYLERGONOVINE 0.2 MG/1 ML AMP ONE (17:52)
[2020-12-24] MEDS ORDERED: miSOPROStoL 200 MCG TABLET ONE (17:52)
[2020-12-24 18:31] LABS: Cord Venous Blood HCO3 18.5 MMOL/L; Cord Venous Blood PO2 27.2
[2020-12-24 18:32] LABS: Bacteria,Urine Occasional /HPF (Few); Bilirubin,Urine Negative (Negative); Blood, Urine Negative (Negative); Glucose,Urine (UA) Negative (Negative); Hyaline Casts,Urine 5 /LPF (0-3); Ketones,Urine Negative (Negative); Mucus,Urine Occasional /LPF (Occasional); Nitrite,Urine Negative (Negative); Protein,Urine >=500 MG/DL; RBC,Urine 2 /HPF (0-4); Squamous Epithelial Cell,Urine Occasional /HPF (0-10); Urine Appearance Slightly Hazy (Clear); Urine Color Yellow (Yellow); Urine Specific Gravity 1.017 (1.001-1.035); Urine Urobilinogen < 2.0 EU/DL (0.2-1.0); WBC,Urine 11 /HPF (0-6)
[2020-12-24] MEDS ORDERED: BISACODYL 10 MG SUPP RECTAL PRN (18:45)
[2020-12-24] MEDS ORDERED: RHO(D) IMMUNE GLOBULIN 300 MCG SYRINGE IM ONE (18:45)
[2020-12-24] MEDS ORDERED: HYDROCORTISONE 2.5% RECTAL CREAM 30 GM TUBE TOP PRN (18:45)
[2020-12-24] MEDS ORDERED: LANOLIN 50% CREAM 0.3 OZ TUBE TOP PRN (18:45)
[2020-12-24] MEDS ORDERED: MEASLES/MUMPS/RUBELLA VACCINE 0.5 ML VIAL SUBCUT ONE (18:45)
[2020-12-24] MEDS ORDERED: ACETAMINOPHEN 325 MG TABLET PO PRN (18:45)
[2020-12-24] MEDS ORDERED: GLUCAGON 1 MG VIAL IM PRN ×2 (18:45→19:02)
[2020-12-24] MEDS ORDERED: OXYTOCIN/LR 20 UNIT/1,000 ML BAG IV ONE (18:45)
[2020-12-24] MEDS ORDERED: BENZOCAINE 20%/MENTHOL 0.5% SPRAY 56 GM CAN TOP PRN (18:45)
[2020-12-24] MEDS ORDERED: DEXTROSE 50% 25 GM/50 ML VIAL IV PRN ×2 (18:45→19:02)
[2020-12-24] MEDS ORDERED: oxyCODONE/ACETAMINOPHEN 5-325 MG TABLET PO PRN ×2 (18:45)
[2020-12-24] MEDS ORDERED: DIPH/TET/ACEL PERT BOOSTER VACCINE 0.5 ML VIAL IM ONE (18:45)
[2020-12-24] MEDS ORDERED: WITCH HAZEL PADS 100/JAR TOP PRN (18:45)
[2020-12-24] MEDS: DOCUSATE SODIUM 100 MG CAPSULE PO SCH (21:00)
[2020-12-24] MEDS: IBUPROFEN 800 MG TABLET PO PRN (21:00)
[2020-12-25 06:32] LABS: Basophils % 0.3 % (0.0-0.8); Eosinophils # 0.1 10*3/uL (0.0-0.87); Eosinophils % 0.4 % (0.00-10.9); Hematocrit 22.2 VOL% (35.7-47.0); Hemoglobin 6.9 GM/DL (12.0-16.0); Immature Granulocytes % 0.5 %; Immature Granulocytes Absolute 0.08 #; Lymphocytes # 2.4 10*3/uL (1.4-4.0); Lymphocytes % 15.2 % (21.3-54.2); Mean Corpuscular HGB Conc 31.1 GM/DL (32-36); Mean Corpuscular Volume 75.3 FL (87-102); Mean Platelet Volume 10.4 FL (9.6-12.0); Monocytes % 5.6 % (1.7-12.7); Platelet Count 232 T/CUMM (130-400); Red Blood Count 2.95 MC/CUMM (3.8-5.5); Red Cell Distribution Width 14.2 % (9.3-17.3); White Blood Count 15.8 T/CUMM (4-12)
[2020-12-25] MEDS ORDERED: SODIUM CHLORIDE 0.9% 1,000 ML IV PRN (06:50)
[2020-12-25] MEDS: FERROUS SULFATE 325 MG TABLET PO SCH ×3 (09:06→20:05)
[2020-12-25] MEDS: DOCUSATE SODIUM 100 MG CAPSULE PO SCH ×2 (09:06→20:05)
[2020-12-25] MEDS: INSULIN REGULAR 100 UNIT/ML SUBCUT SCH ×2 (09:14→16:13)
[2020-12-25] MEDS: IBUPROFEN 800 MG TABLET PO PRN (12:19)
[2020-12-25 17:31] LABS: Hematocrit 28.5 VOL% (35.7-47.0); Hemoglobin 9.2 GM/DL (12.0-16.0)
[2020-12-26] MEDS ORDERED: INFLUENZA VIRUS VACCINE 0.5 ML SYRINGE IM ONE ×2 (09:00→12:00)
[2020-12-26 09:24] VITALS: BP 137/91
[2020-12-26] MEDS: INSULIN REGULAR 100 UNIT/ML SUBCUT SCH (09:38)
[2020-12-26] MEDS: DOCUSATE SODIUM 100 MG CAPSULE PO SCH (10:07)
[2020-12-26] MEDS: FERROUS SULFATE 325 MG TABLET PO SCH (10:07)
== END 2020-12-26 13:40 | disposition home or self-care (01) | DRG 560 ==
LOC: N.LD 06:50 → N.OB 21:10
PROVIDERS: ADMIT Obstetrics & Gynecology; ATTEND Obstetrics & Gynecology

== ENCOUNTER 2022-10-18 21:14 | Inpatient (IN) ==
[2022-10-18] MEDS ORDERED: LACTATED RINGERS 500 ML IV PRN (21:22)
[2022-10-18] MEDS ORDERED: TRANEXAMIC ACID 1,000 MG in SODIUM CHLORIDE 0.9% 100 ML IV PRN (21:22)
[2022-10-18] MEDS ORDERED: METHYLERGONOVINE 0.2 MG/1 ML AMP IM PRN (21:22)
[2022-10-18] MEDS ORDERED: BUTORPHANOL 2 MG/ML VIAL IV PRN (21:22)
[2022-10-18] MEDS ORDERED: ACETAMINOPHEN 325 MG TABLET PO PRN (21:22)
[2022-10-18] MEDS ORDERED: CARBOPROST TROMETHAMINE 250 MCG/ML AMP IM PRN (21:22)
[2022-10-18] MEDS ORDERED: OXYTOCIN/LR 20 UNIT/1,000 ML BAG IV ONE (21:22)
[2022-10-18] MEDS ORDERED: miSOPROStoL 200 MCG TABLET RECTAL PRN (21:22)
[2022-10-18] MEDS ORDERED: ONDANSETRON 4 MG/2 ML VIAL IV PRN (21:22)
[2022-10-18] MEDS ORDERED: OXYTOCIN/LR 20 UNIT/1,000 ML BAG IV SCH (21:30)
[2022-10-18] MEDS ORDERED: MEPERIDINE 25 MG/1 ML VIAL IV PRN (21:42)
[2022-10-18 21:49] LABS: Basophils % 0.4 % (0.0-0.8); Eosinophils # 0.1 10*3/uL (0.0-0.87); Eosinophils % 1.4 % (0.00-10.9); Hematocrit 34.1 VOL% (35.7-47.0); Hemoglobin 11.3 GM/DL (12.0-16.0); Immature Granulocytes % 0.4 %; Immature Granulocytes Absolute 0.03 #; Lymphocytes # 2.7 10*3/uL (1.4-4.0); Mean Corpuscular HGB Conc 33.1 GM/DL (32-36); Mean Corpuscular Volume 81.8 FL (87-102); Monocytes # 0.5 10*3/uL (0.11-0.8); Monocytes % 5.7 % (1.7-12.7); Neutrophils % 60.1 % (38.7-73.9); Platelet Count 307 T/CUMM (130-400); Red Blood Count 4.17 MC/CUMM (3.8-5.5); Red Cell Distribution Width 13.9 % (9.3-17.3); White Blood Count 8.4 T/CUMM (4-12)
[2022-10-18 22:11] LABS: Alanine Aminotransferase 14 U/L (13-56); Albumin 2.4 G/DL (3.4-5.0); Alkaline Phosphatase 144 U/L (45-117); Aspartate Amino Transferase 16 U/L (0-37); Bilirubin,Total < 0.39 MG/DL (0.20-1.00); Blood Urea Nitrogen 14 MG/DL (7-18); Calcium 8.4 MG/DL (8.5-10.1); Carbon Dioxide 21 MMOL/L (21-32); Chloride 108 MMOL/L (98-107); Glucose 169 MG/DL (74-106); Osmolality,Calculated 277.8 MOS/KG (273-304); Sodium 137 MMOL/L (136-145); Total Protein 7.1 G/DL (6.4-8.2)
[2022-10-18] MEDS ORDERED: INSULIN REGULAR 100 UNIT/ML SUBCUT ONE (23:00)
[2022-10-19] MEDS: LACTATED RINGERS 1,000 ML IV SCH ×2 (02:52→07:33)
[2022-10-19] MEDS ORDERED: OXYTOCIN/LR 20 UNIT/1,000 ML BAG IV SCH (03:00)
[2022-10-19] MEDS ORDERED: fentaNYL 2 MCG/ROPIV 0.2% EPID 100 ML EPIDURAL PRN (06:35)
[2022-10-19] MEDS ORDERED: ePHEDrine 50 MG/ML VIAL IV PRN (06:35)
[2022-10-19] MEDS ORDERED: CITRIC ACID/SODIUM CITRATE 30 ML UDCUP PO PRN (06:35)
[2022-10-19] MEDS ORDERED: PROMETHAZINE 25 MG/1 ML VIAL IM PRN (06:35)
[2022-10-19] MEDS ORDERED: LACTATED RINGERS 1,000 ML IV PRN (06:35)
[2022-10-19] MEDS ORDERED: FAMOTIDINE 20 MG/2 ML VIAL IV PRN (06:35)
[2022-10-19] MEDS ORDERED: hydrOXYzine HCL 25 MG/1 ML VIAL IM PRN (06:35)
[2022-10-19] MEDS ORDERED: diphenhydrAMINE 50 MG/1 ML VIAL IV PRN ×2 (06:35)
[2022-10-19] MEDS ORDERED: OXYTOCIN/LR 30 UNIT/1,000 ML BAG IV PRN (06:39)
[2022-10-19] MEDS ORDERED: ceFAZolin 2,000 MG/50 ML DUPLEX IV ONE (07:46)
[2022-10-19] MEDS ORDERED: OXYTOCIN/LR 20 UNIT/1,000 ML BAG IV ONE ×2 (07:46→09:58)
[2022-10-19] MEDS ORDERED: OXYTOCIN 10 UNIT/ML VIAL IM ONE (07:49)
[2022-10-19] MEDS ORDERED: OXYTOCIN/LR 30 UNIT/1,000 ML BAG IV ONE (07:51)
[2022-10-19] MEDS ORDERED: buprenorphine HCL 0.3 MG/ML VIAL ONE (08:27)
[2022-10-19] MEDS ORDERED: KETOROLAC 30 MG/1 ML VIAL ONE (08:27)
[2022-10-19] MEDS ORDERED: ONDANSETRON 4 MG/2 ML VIAL ONE (08:27)
[2022-10-19] MEDS ORDERED: PHENYLEPHRINE 1 MG/10 ML SYRINGE IV ONE (09:21)
[2022-10-19 09:49] LABS: Cord Arterial Blood HCO3 19.5 MMOL/L
[2022-10-19 09:52] LABS: Cord Venous Blood HCO3 20.5 MMOL/L; Cord Venous Blood PCO2 50.1 MMHG; Cord Venous Blood PO2 27.1
[2022-10-19 09:54] LABS: Bacteria,Urine Occasional /HPF (Few); Mucus,Urine Occasional /LPF (Occasional); RBC,Urine 1 /HPF (0-4); Squamous Epithelial Cell,Urine Occasional /HPF (0-10); Urine Appearance Clear (Clear); Urine Color Yellow (Yellow); Urine pH 6.5 (4.5-8.0)
[2022-10-19 09:56] LABS: Glucose,Urine (UA) Negative (Negative); Ketones,Urine 80 mg/dL (Negative); Nitrite,Urine Negative (Negative); Protein,Urine Trace mg/dL (Negative); Urine Specific Gravity 1.025 (1.001-1.035)
[2022-10-19 09:57] LABS: Bilirubin,Urine Negative (Negative); Blood, Urine Negative (Negative); Urine Urobilinogen 0.2 eU/dL (<2.0)
[2022-10-19] MEDS ORDERED: IBUPROFEN 800 MG TABLET PO PRN (09:58)
[2022-10-19] MEDS ORDERED: ACETAMINOPHEN 325 MG TABLET PO PRN (09:58)
[2022-10-19] MEDS ORDERED: MAGNESIUM HYDROXIDE SUSP 30 ML UDCUP PO PRN (09:58)
[2022-10-19] MEDS ORDERED: DEXTROSE 10% 250 ML BAG IV PRN (09:58)
[2022-10-19] MEDS ORDERED: RHO(D) IMMUNE GLOBULIN 300 MCG SYRINGE IM ONE (09:58)
[2022-10-19] MEDS ORDERED: ONDANSETRON 4 MG/2 ML VIAL IV PRN (09:58)
[2022-10-19] MEDS ORDERED: GLUCAGON 1 MG VIAL IM PRN (09:58)
[2022-10-19] MEDS ORDERED: SIMETHICONE CHEW 80 MG TABLET PO PRN (09:58)
[2022-10-19] MEDS ORDERED: LACTATED RINGERS 1,000 ML IV SCH (10:00)
[2022-10-19] MEDS ORDERED: HYDROmorphone 1 MG/1 ML SYRINGE IV PRN (10:04)
[2022-10-19] MEDS: INSULIN LISPRO 100 UNIT/ML SUBCUT SCH ×2 (12:00→18:55)
[2022-10-19] MEDS: ACETAMINOPHEN 500 MG TABLET PO SCH ×2 (13:06→18:51)
[2022-10-19] MEDS: KETOROLAC 30 MG/1 ML VIAL IV SCH ×2 (16:02→21:43)
[2022-10-19 18:07] LABS: Basophils % 0.4 % (0.0-0.8); Eosinophils # 0.1 10*3/uL (0.0-0.87); Hematocrit 29.3 VOL% (35.7-47.0); Hemoglobin 9.6 GM/DL (12.0-16.0); Immature Granulocytes % 0.4 %; Immature Granulocytes Absolute 0.03 #; Lymphocytes # 2.2 10*3/uL (1.4-4.0); Lymphocytes % 26.8 % (21.3-54.2); Mean Corpuscular HGB Conc 32.8 GM/DL (32-36); Mean Corpuscular Volume 81.8 FL (87-102); Mean Platelet Volume 9.9 FL (9.6-12.0); Monocytes # 0.5 10*3/uL (0.11-0.8); Monocytes % 6.6 % (1.7-12.7); Neutrophils % 64.8 % (38.7-73.9); Platelet Count 229 T/CUMM (130-400); Red Blood Count 3.58 MC/CUMM (3.8-5.5); Red Cell Distribution Width 13.9 % (9.3-17.3)
[2022-10-19] MEDS: DOCUSATE SODIUM 100 MG CAPSULE PO SCH (21:42)
[2022-10-20] MEDS: ACETAMINOPHEN 500 MG TABLET PO SCH ×2 (01:05→06:40)
[2022-10-20] MEDS: INSULIN LISPRO 100 UNIT/ML SUBCUT SCH ×4 (01:26→18:10)
[2022-10-20] MEDS: KETOROLAC 30 MG/1 ML VIAL IV SCH (04:01)
[2022-10-20 05:17] LABS: Basophils % 0.3 % (0.0-0.8); Eosinophils # 0.1 10*3/uL (0.0-0.87); Eosinophils % 1.5 % (0.00-10.9); Hematocrit 28.1 VOL% (35.7-47.0); Hemoglobin 8.9 GM/DL (12.0-16.0); Immature Granulocytes % 0.4 %; Immature Granulocytes Absolute 0.03 #; Lymphocytes # 1.8 10*3/uL (1.4-4.0); Lymphocytes % 25.8 % (21.3-54.2); Mean Corpuscular HGB Conc 31.7 GM/DL (32-36); Mean Corpuscular Volume 83.1 FL (87-102); Monocytes # 0.6 10*3/uL (0.11-0.8); Monocytes % 8.1 % (1.7-12.7); Neutrophils % 63.9 % (38.7-73.9); Platelet Count 223 T/CUMM (130-400); Red Blood Count 3.38 MC/CUMM (3.8-5.5); Red Cell Distribution Width 13.8 % (9.3-17.3); White Blood Count 7.1 T/CUMM (4-12)
[2022-10-20] MEDS: MULTIVITAMIN (PRENATAL) TABLET PO SCH (09:03)
[2022-10-20] MEDS: DOCUSATE SODIUM 100 MG CAPSULE PO SCH ×2 (09:03→20:47)
[2022-10-20] MEDS: METOCLOPRAMIDE 10 MG TABLET PO SCH ×2 (09:03→17:22)
[2022-10-21] MEDS: INSULIN LISPRO 100 UNIT/ML SUBCUT SCH ×2 (00:52→06:22)
[2022-10-21] MEDS: METOCLOPRAMIDE 10 MG TABLET PO SCH ×2 (02:52→08:26)
[2022-10-21 07:28] VITALS: BP 116/77
[2022-10-21] MEDS: DOCUSATE SODIUM 100 MG CAPSULE PO SCH (08:27)
[2022-10-21] MEDS: MULTIVITAMIN (PRENATAL) TABLET PO SCH (08:27)
== END 2022-10-21 15:00 | disposition home or self-care (01) | DRG 540 ==
LOC: N.LDOUT 21:14 → N.ADMINP 21:16 → N.LD 21:16 → N.ADMINP 21:23 → N.LD 10-19 08:31 → INTOOBSV 10-19 08:31 → N.ADMINP 10-19 12:15 → N.OB 10-19 12:15
PROVIDERS: ADMIT Obstetrics & Gynecology; ATTEND Obstetrics & Gynecology
PROC: LDCSECT (ICD-10-PCS; 2022-10-19 08:00)